=== PATIENT | female | born 1995 | race Two or more races ===

== ENCOUNTER 2019-03-28 15:46 | Observation (INO) | payer SELFPAY ==
[2019-03-28] MEDS ORDERED: IV RINGERS,LACTATED 1000ML 1,000 ML IV SCH (15:59)
[2019-03-28] MEDS ORDERED: ACETAMINOPHEN 325 MG TABLET. PO PRN (16:00)
[2019-03-28] MEDS ORDERED: ONDANSETRON PF 4 MG/2 ML VIAL. IV PRN (16:00)
[2019-03-28 16:18] LABS: BILIRUBIN,URINE NEGATIVE (NEG); CLARITY,URINE CLEAR; COLOR,URINE YELLOW; NITRITE,URINE NEGATIVE (NEG); PROTEIN,URINE NEGATIVE (NEG-TRACE); UROBILINOGEN,URINE 0.2 mg/dL (0.2 mg/dL)
[2019-03-28 16:23] LABS: AMPHETAMINE/METHAMPHETAMINE NEG (NEG); BARBITURATES NEG (NEG); BENZODIAZEPINES NEG (NEG); CANNABINOIDS NEG (NEG); COCAINE NEG (NEG); METHADONE NEG (NEG); OPIATES NEG (NEG); PHENCYCLIDINE NEG (NEG)
[2019-03-28 16:27] LABS: BACTERIA,URINE MODERATE /HPF (0-FEW); RBC,URINE 0 /HPF (0-2); SQUAMOUS EPITHELIAL CELL,UR OCC /LPF
--- NOTE | 2019-03-28 17:31 | RAD ---
Biophysical profile Clinical Indication: Intrauterine growth restriction. Technique: Multiple grayscale images of the pelvis are obtained. Findings: A single intrauterine is present in the cephalic position. heart rate is 147 beats per minute. Placenta is anterior. breathing movements: 2 out of 2. motion: 2 out of 2. tone: 2 out of 2. Amniotic fluid volume: 2 out of 2. Therefore, the biophysical profile score is 8 out of 8. JED using the 4 quadrant method is 8 cm. Impression: Biophysical profile score is 8 out of 8. Electronically signed by: Manuel Ruggiero MD (03/28/2019 5:28 PM) [facility]
--- NOTE | 2019-03-28 17:34 | RAD ---
OB LIMITED Clinical Indication: Intrauterine growth restriction. Comparison: None. Technique: Multiple grayscale images, color Doppler, and M-mode images of the uterus are obtained. Findings: There is a single intrauterine gestation in cephalic presentation. The placenta is anterior in location without evidence of placenta previa. The amount of amniotic fluid appears appropriate. Amniotic fluid index is 8 cm. Cervix is not visualized. Biometrical data: BPD = 8.9 cm for 36 weeks 2 days. HC = 30.9 cm for 34 weeks 4 days. AC = 31.2 cm for 35 weeks 1 days. FL = 6.5 cm for 33 weeks 4 days. HC/AC ratio = 0.99. Overall, the estimated sonographic gestational age is 34 weeks and 6 days for an estimated date of delivery of May 03, 2019. Estimated weight is 2506 +/- 371 grams. The estimated heart rate is 171 beats per minute. A anatomic survey is not possible due to advanced gestational age. Impression: 1. Single live intrauterine gestation with estimated sonographic gestational age of 34 weeks and 6 days. 2. The amniotic fluid index is normal. Electronically signed by: Manuel Ruggiero MD (03/28/2019 5:31 PM) [facility]
== END 2019-03-28 17:39 | disposition home or self-care (01) ==
LOC: 3 SO LND 15:46
PROVIDERS: ADMIT Obstetrics & Gynecology; ATTEND Obstetrics & Gynecology
DX: Z34.83 Encounter for supervision of other normal pregnancy, third trimester (principal); Z3A.38 38 weeks gestation of pregnancy
CPT/HCPCS: 76815; 76819; 80307; 81001; 87086; G0378; G0379; 59025